=== PATIENT | male | born 1950 | race Hispanic/Latino ===

== ENCOUNTER → 2018-03-18 | Outpatient (CLI) | payer OTHER ==
[~2018-03-18] MED LIST: ATORVASTATIN CA80 MG PO; FISH OIL500 MG PO; FLOMAX0.4 MG PO; IRON325 M1 PO; ISOSORBIDE MONO30 MG PO; LOSARTAN POTASS25 MG PO; NIFEDIPINE ER30 M1 PO; NORCO 5-325 TA1 EACH PO; OMEPRAZOLE40 MG PO; PLAVIX75 MG PO; SERTRALINE HCL100 MG PO; ULTRAM50 MG PO; ZOFRAN ODT4 MG SL
--- NOTE | 2018-03-18 09:59 | Diagnostic Imaging Report ---
PROCEDURE:ABDOMINAL ULTRASOUND COMPARISON:None. INDICATIONS:EPIGASTRIC PAIN FINDINGS: Liver: Measures 16.0 cm in the mid clavicular line with normal hepatic parenchymal echogenicity. No focal mass. Main portal vein: Measures 0.89 cm with normal Hepatopetal flow. Gallbladder: Normal without evidence of stones. No gallbladder wall thickening measuring 0.2 cm. Common Bile Duct: Measures 4.7 mm with no echogenic filling defect. Sonographic Cole's sign: Negative Right kidney: Measures 13.9 x 7.0 x 5.5 cm. No solid or cystic mass, echogenic calculi or hydronephrosis. Normal parenchymal echogenicity. There is a midpole renal cyst measuring 1.3 cm. Left kidney: Small measuring 8.4 x 3.5 x 3.8 cm. Left kidney is more hypoechoic than the right. There is also cortical thinning. No solid or cystic mass, echogenic calculi, or hydronephrosis. Normal parenchymal echogenicity. Spleen: Measures 11.2 x 3.6 x 4.9 cm. Pancreas: Limited evaluation. Inferior vena cava: Limited evaluation Aorta: Normal with a maximal measurement of 1.9 cm. Ascites: None. CONCLUSION: 1. No acute sonographic abnormality. 2. Small atrophic left kidney. 3. Benign-appearing right renal cyst. Emmanuel Lopez D.O. Dictated by: mEmanuel Lopez D.O. on 03/18/2018 at 10:09 Electronically approved by: Emmanuel Lopez D.O. on 03/18/2018 at 10:09
== END ==
LOC: US 07:58
PROVIDERS: ATTEND Internal Medicine Gastroenterology
DX: R10.13 Epigastric pain (principal); R11.10 Vomiting, unspecified; E66.3 Overweight; I10 Essential (primary) hypertension; Z71.3 Dietary counseling and surveillance
CPT/HCPCS: 76700

== ENCOUNTER → 2018-12-18 | Outpatient (CLI) | payer MEDICARE ==
[~2018-12-18] MED LIST changes: +IOPAMIDOL 370 MG/ML 200 ML INFUS..BTL INJ ONE; +SODIUM CHLORIDE 0.9% 50ML 50 ML ONE
[2018-12-18 09:34] LABS: BLOOD UREA NITROGEN 12 mg/dL (7-26); BUN/CREATININE RATIO 14 (6-25); CREATININE, SERUM 0.86 mg/dL (0.72-1.25); EST GLOMERULAR FILTRATION RATE > 60 ML/MIN (60-)
--- NOTE | 2018-12-18 10:44 | Diagnostic Imaging Report ---
Exam: CT abdomen and pelvis Clinical history: Duodenal tumor Comparison: None available Technique: Helical images of the abdomen and pelvis were obtained after IV contrast administration DOSE REDUCTION: The exams was performed according to the departmental dose-optimization program which includes automated exposure control, adjustment of the mA and/or kV according to patient size and/or use of iterative reconstruction technique. Findings: The lung bases are clear. There is no evidence of pleural effusion. The cardiac size is within normal limits. The liver, spleen, pancreas, gallbladder, adrenal glands, and right kidney are unremarkable. The left kidney is diffusely atrophic likely chronic in nature. The patient is status post partial gastric and duodenal resection with postoperative changes. Focal mucosal prominence is noted at the anastomosis which may represent postoperative changes. However, due to the lack of comparison study, recurrence or residual tumor in this region cannot be excluded. The small and large bowels are normal in caliber. Appendix is visualized and unremarkable. The bladder, prostate, and seminal vesicles are unremarkable. There is no evidence of lymphadenopathy or free fluid. The aorta and IVC are normal in caliber. Degenerative changes are noted at the lower lumbar spine. No osteoblastic or lytic lesions are noted in the visualized osseous structures. Impression: 1. Status post distal gastric and duodenal resection with postoperative changes. Focal mucosal prominence is noted at the anastomosis. Comparison with prior study, if available, is recommended, otherwise, correlation with endoscopy is recommended. Signed by: Dr. Dickson Evans MD on 12/18/2018 10:41 AM
== END ==
LOC: CT 08:21
PROVIDERS: ATTEND Internal Medicine Gastroenterology
DX: C17.0 Malignant neoplasm of duodenum (principal); R11.10 Vomiting, unspecified
CPT/HCPCS: 36415; 74177; 82565; 84520; Q9967

== ENCOUNTER 2019-07-05 01:09 | Emergency (ER) | payer MEDICARE ==
[~2019-07-05] VITALS: Ht 177.8 cm; Wt 87.5 kg
[~2019-07-05 01:09] MED LIST changes: -IOPAMIDOL 370 MG/ML 200 ML INFUS..BTL INJ ONE; -SODIUM CHLORIDE 0.9% 50ML 50 ML ONE
--- OUTSIDE RECORDS SUMMARY | 2019-07-05 01:14 | XMS REPORT ---
Author Author [facility] Address Unknown Phone Unavailable Care Team Providers Care Jacker Feeder Name Role Phone Marcos BOSTON Unavailable Unavailable KARINE MCGOVERN Unavailable Unavailable Arielle HARRIS Unavailable Unavailable Problems This patient has no known problems. Allergies, Adverse Reactions, Alerts This patient has no known allergies or adverse reactions. Medications This patient has no known medications. Results Test Description Test Time Test Comments Text Results Atomic Results Result Comments CT ABDOMEN/PELVIS W 2018-12-18 10:34:00 [place] [address] Patient Name: FEROZ MENENDEZ MR #: [id number] : 1950 Age/Sex: 68/M Req #: [id number] Adm Physician: Ordered by: RENE BOSTON MD Report #: [id number] Location: CT Room/Bed: Procedure: [id number] CT/CT ABDOMEN/PELVIS W Exam Date: 12/18/18 Exam Time: 0940 REPORT STATUS: Signed Exam: CT abdomen and pelvis Clinical history: Duod enal tumor Comparison: None available Technique: Helical images of the abdomen and pelvis were obtained after IV contrast administration DOSE REDUCTION: The exams was performed according to the departmental dose- optimization program which includes automated exposure control, adjustment of the mA and/or kV according to patient size and/or use of iterative reconstruction technique. Findings: The lung bases are clear. There is no evidence of pleural effusion. The cardiac size is within normal limits. The liver, spleen, pancreas, gallbladder, adrenal glands, and right kidney are unremarkable. The left kidney is diffusely atrophic likely chronic in nature. The patient is status post partial gastric and duodenal resection with postoperative changes. Focal mucosal prominence is noted at the anastomosis which may represent postoperative changes. However, due to the lack of comparison study, recurrence or residual tumor in this region cannot be excluded. The small and large bowels are normal in caliber. Appendix is visualized and unremarkable. The bladder, prostate, and seminal vesicles are unremarkable. There is no evidence of lymphadenopathy or free fluid. The aorta and IVC are normal in caliber. Degenerative changes are noted at the lower lumbar spine. No osteoblastic or lytic lesions are noted in the visualized osseous structures. Impression: 1. Status post distal gastric and duodenal resection with postoperative changes. Focal mucosal prominence is noted at the anastomosis. Comparison with prior study, if available, is recommended, otherwise, correlation with endoscopy is recommended. Signed by: Dr. Dickson Evans MD on 12/18/2018 10:41 AM Dictated By: GABRIEL EVANS MD 1041 Transcribed By: KATRINA on 12/18/18 1041 COPY TO: RENE BOSTON MD ABDOMEN COMPLETE 2018-03-18 10:09:00 [place] [address] Patient Name: FEROZ MENENDEZ MR #: [id number] : 1950 Age/Sex: 67/M Req #: [id number] Adm Physician: Ordered by: RENE BOSTON MD Report #: [id number] Location: US Room/Bed: Procedure: [id number] US/US ABDOMEN COMPLETE Exam Date: 03/18/18 Exam Time: 0839 REPORT STATUS: Signed PROCEDURE: ABDOMINAL ULTRASOUND COMPARISON: None. INDICATIONS: EPIGASTRIC PAIN FINDINGS: Liver: Measures 16.0 cm in the mid clavicular line with normal hepatic parenchymal echogenicity. No focal mass. Main portal vein: Measures 0.89 cm with normal Hepatopetal flow. Gallbladder: Normal without evidence of stones. No gallbladder wall thickening measuring 0.2 cm. Common Bile Duct: Measures 4.7 mm with no echogenic filling defect. Sonographic Cole's sign: Negative Right kidney: Measures 13.9 x 7.0 x 5.5 cm. No solid or cystic mass, echogenic calculi or hydronephrosis. Normal parenchymal echogenicity. There is a midpole renal cyst measuring 1.3 cm. Left kidney: Small measuring 8.4 x 3.5 x 3.8 cm. Left kidney is more hypoechoic than the right. There is also cortical thinning. No solid or cystic mass, echogenic calculi, or hydronephrosis. Normal parenchymal echogenicity. Spleen: Measures 11.2 x 3.6 x 4.9 cm. Pancreas: Limited evaluation. Inferior vena cava: Limited evaluation Aorta: Normal with a maximal measurement of 1.9 cm. Ascites: None. CONCLUSION: 1. No acute sonographic abnormality. 2. Small atrophic left kidney. 3. Benign-appearing right renal cyst. Emmanuel Krueger D.O. Dictated by: Emmanuel Krueger D.O. on 03/18/2018 at 10:09 Electronically approved by: Emmanuel Krueger D.O. on 03/18/2018 at 10:09 Dictated By: EMMANUEL KRUEGER DO 1009 Transcribed By: CRISTY on 03/18/18 1009 COPY TO: RENE BOSTON MD CT BRAIN WO [place] [id number] Patient Name: FEROZ MENENDEZ MR #: [id number] : 1950 Age/Sex: 66/M Req #: [id number] Adm Physician: KARINE MCGOVERN MD Ordered by: SAGAR KRAMER MD Report #: [id number] Location: [facility] Room/Bed: [address] Procedure: [id number] CT/CT BRAIN WO Exam Date: 01/18/17 Exam Time: 1530 REPORT STATUS: Signed History: S SUDDEN ONSET DIZZY/VOMITING Comparison studies: January 16, 2017 Technique: Axial images were obtained from the skull base to the vertex. Coronal and sagittal reconstructions obtained from the axial data. Findings: Scalp/skull: No abnormalities. No fractures, blastic or lytic lesions. Extra-axial spaces: Mildly prominent bifrontal subarachnoid spaces. No masses. No fluid collections. Brain sulci: Mildly prominent bifrontal sulci. Ventricles: Normal in size and configuration. No hydrocephalus. Parenchyma: No abnormal densities. No masses, hemorrhage, acute or chronic cortical vascular insults. Sellar/suprasellar region: Partially empty sella. Craniocervical junction: Patent foramen magnum. No Chiari one malformation. IMPRESSION: No acute abnormalities. Moderate generalized age-related cerebral volume loss. Preliminary report was given by neuroradiology fellow Dr. Hopper at 5:19 PM on 01/18/2017. I have reviewed the study and agree with the findings in the report. Signed by: Dr. Tierra Mcdermott M.D. on 01/18/2017 8:08 PM Dictated By: TIERRA MCDERMOTT MD 07 COPY TO: SAGAR KRAMER MD [facility] (PORTABLE) [place] [address] Patient Name: FEROZ MENENDEZ MR #: [id number] : 1950 Age/Sex: 66/M Req #: [id number] Adm Physician: Ordered by: SAGAR KRAMER MD Report #: [id number] Location: ER Room/Bed: Procedure: [id number] DX/CHEST SINGLE (PORTABLE) Exam Date: 01/18/17 Exam Time: 1450 REPORT STATUS: Signed PROCEDURE: A single AP view of the chest. COMPARISON: [facility], CT, CT CHEST W, 01/16/2017, 22:35. INDICATIONS: WEAKNESS, DIZZY, VOMITTING FINDINGS: Lines/tubes: None. Lungs: The lungs are well inflated and clear. There is no evidence of pneumonia or pulmonary edema. Pleura: There is no pleural effusion or pneumothorax. Heart and mediastinum: Cardiac silhouette is unremarkable. Pulmonary vasculature is normal. Bones: No acute bony abnormality. IMPRESSION: 1. No acute cardiopulmonary abnormalities. Hiram Montalvo M.D. Dictated by: Hiram Montalvo M.D. on 01/18/2017 at 15:42 Electronically approved by: Hiram Montalvo M.D. on 01/18/2017 at 15:42 Dictated By: HIRAM MONTALVO MD 154 Transcribed By: CRISTY on 01/18/17 1542 COPY TO: SAGAR KRAMER MD CT CHEST W [place] [address] Patient Name: FEROZ MENENDEZ MR #: [id number] : 1950 Age/Sex: 66/M Req #: [id number] Adm Physician: Ordered by: MARGARET GUILLAUME Report #: [id number] Location: Room/Bed: Procedure: [id number] CT/CT CHEST W Exam Date: 01/16/17 Exam Time: 2240 REPORT STATUS: Signed EXAM: CT Chest, Abdomen and Pelvis WITH contrast INDICATION: Trauma COMPARISON: None. TECHNIQUE: Chest, abdomen and pelvis were scanned utilizing a multidetector helical scanner from the lung apex to the pubic symphysis before and after administration of IV contrast. Coronal and sagittal reformations were obtained. Trauma protocol was performed. Scan was performed during arterial phase through the chest and early portal venous phase through the abdomen and pelvis. No oral contrast was given. IV CONTRAST: 100 mL of Isovue-370 ORAL CONTRAST: Water RADIATION DOSE: Total DLP: 974.8 mGy*cm Estimated effective dose: (DLP x 0.015 x size factor) mSv COMPLICATIONS: None FINDINGS: LINES and TUBES: None. LUNGS AND AIRWAYS: The lungs are unremarkable. Airways are normal. PLEURA: The pleural spaces are clear. HEART AND MEDIASTINUM: The thyroid gland is normal. No mediastinal, hilar or axillary lymphadenopathy. The heart is normal in size.. There is no pericardial effusion. HEPATOBILIARY: No focal hepatic lesions. No biliary ductal dilation. GALLBLADDER: No radio-opaque stones or sludge. No wall thickening. SPLEEN: No splenomegaly. PANCREAS: No focal masses or ductal dilatation. ADRENALS: No adrenal nodules KIDNEYS/URETERS: The left kidney is severely atrophic/infarct involving the upper pole and interpolar region with minimal inferior pole normal parenchyma. No hydronephrosis. No cystic or solid mass lesions. No stones. GI TRACT: No abnormal distention, wall thickening, or evidence of bowel obstruction. Postsurgical changes related to prior gastrojejunostomy. Appendix is normal. PELVIC ORGANS/BLADDER: Incidentally noted 1.7 cm prostatic cyst. The prostate gland is within normal limits. The visualized rectum, bladder, seminal vesicles are unremarkable LYMPH NODES: No lymphadenopathy. VESSELS: There is moderate atherosclerotic disease in the aorta and major arterial branches. PERITONEUM / RETROPERITONEUM: No free air or fluid. BONES: There are degenerative changes in the lumbar spine mainly involving L4-5 and L5-S1 levels. Postsurgical changes in the chest consistent with prior CABG procedure SOFT TISSUES: Unremarkable. IMPRESSION: 1. No evidence of acute traumatic injury. 2. 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 3. 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 4. Postsurgical changes related to CABG procedure, and gastrojejunostomy Signed by: Dr. Tahir James M.D. on 01/16/2017 11:47 PM Dictated By: TAHIR GARCIA MD 46 Transcribed By: KATRINA on 01/16/172346 COPY TO: MARGARET GUILLAUME CT ABDOMEN/PELVIS W [place] [address] Patient Name: FEROZ MENENDEZ MR #: [id number] : 1950 Age/Sex: 66/M Req #: [id number] Adm Physician: Ordered by: MARGARET GUILLAUME Report #: [id number] Location: ER Room/Bed: Procedure: [id number] CT/CT ABDOMEN/PELVIS W Exam Date: 01/16/17 Exam Time: 0 REPORT STATUS: Signed EXAM: CT Chest, Abdomen and Pelvis WITH contrast INDICATION: Trauma COMPARISON: None. TECHNIQUE: Chest, abdomen and pelvis were scanned utilizing a multidetector helical scanner from the lung apex to the pubic symphysis before and after administration of IV contrast. Coronal and sagittal reformations were obtained. Trauma protocol was performed. Scan was performed during arterial phase through the chest and early portal venous phase through the abdomen and pelvis. No oral contrast was given. IV CONTRAST: 100 mL of Isovue-370 ORAL CONTRAST: Water RADIATION DOSE: Total DLP: 974.8 mGy*cm Estimated effective dose: (DLP x 0.015 x size factor) mSv COMPLICATIONS: None FINDINGS: LINES and TUBES: None. LUNGS AND AIRWAYS: The lungs are unremarkable. Airways are normal. PLEURA: The pleural spaces are clear. HEART AND MEDIASTINUM: The thyroid gland is normal. No mediastinal, hilar or axillary lymphadenopathy. The heart is normal in size.. There is no pericardial effusion. HEPATOBILIARY: No focal hepatic lesions. No biliary ductal dilation. GALLBLADDER: No radio-opaque stones or sludge. No wall thickening. SPLEEN: No splenomegaly. PANCREAS: No focal masses or ductal dilatation. ADRENALS: No adrenal nodules KIDNEYS/URETERS: The left kidney is severely atrophic/infarct involving the upper pole and interpolar region with minimal inferior pole normal parenchyma. No hydronephrosis. No cystic or solid mass lesions. No stones. GI TRACT: No abnormal distention, wall thickening, or evidence of bowel obstruction. Postsurgical changes related to prior gastrojejunostomy. Appendix is normal. PELVIC ORGANS/BLADDER: Incidentally noted 1.7 cm prostatic cyst. The prostate gland is within normal limits. The visualized rectum, bladder, seminal vesicles are unremarkable LYMPH NODES: No lymphadenopathy. VESSELS: There is moderate atherosclerotic disease in the aorta and major arterial branches. PERITONEUM / RETROPERITONEUM: No free air or fluid. BONES: There are degenerative changes in the lumbar spine mainly involving L4-5 and L5-S1 levels. Postsurgical changes in the chest consistent with prior CABG procedure SOFT TISSUES: Unremarkable. IMPRESSION: 1. No evidence of acute traumatic injury. 2. 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 3. 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 4. Postsurgical changes related to CABG procedure, and gastrojejunostomy Signed by: Dr. Tahir James M.D. on 01/16/2017 11:47 PM Dictated By: TAHIR GARCIA MD 46 Transcribed By: KATRINA on 01/16/172346 COPY TO: MARGARET GUILLAUME CT PELVIS WO [facility] [address] [place] [address] Patient Name: FEROZ MENENDEZ MR #: [id number] : 1950 Age/Sex: 66/M Req #: [id number] Adm Physician: Ordered by: MARGARET GUILLAUME Report #: [id number] Location: ER Room/Bed: Procedure: [id number] CT/CT PELVIS WO Exam Date: 01/16/17 Exam Time: 1830 REPORT STATUS: Signed PROCEDURE: CT PELVIS WITHOUT CONTRAST COMPARISON: [facility], DX, HIP LEFT 2-3 VW (+/- PELVIS), 01/16/2017, 18:12. INDICATIONS: FALL, LEFT HIP PAIN TECHNIQUE: CT images were created without intravenous contrast. FINDINGS: PELVIC ORGANS: Bladder is decompressed, but grossly unremarkable. Dystrophic calcifications in the prostate. Seminal vesicles are unremarkable. PELVIC NODES: No distal retroperitoneal pelvic or inguinal adenopathy. GI TRACT: Visualized bowel shows no dilation or obstruction. The appendix is well identified and normal in caliber. BONES: Acute, nondisplaced fracture of the anterior column of the left acetabulum (series 4, image 61 and sagittal image 42), which extends into the joint space. Minimally displaced oblique fracture of the left infe rior pubic ramus (series 4, images 79-81 and sagittal bone images 77 and 78.) OTHER: Soft tissues are grossly unremarkable.. CONCLUSION: 1. Acute, nondisplaced fracture of the anterior column of the left acetabulum, which extends into the joint space. 2. Minimally displaced oblique fracture of the left inferior pubic ramus. These fractures correspond to the abnormalities noted on prior plain film. Hiram Montalvo M.D. Dictated by: Hiram Montalvo M.D. on 01/16/2017 at 19:30 Electronically approved by: Hiram Montalvo M.D. on 01/16/2017 at 19:30 Dictated By: HIRAM MONTALVO MD 29 Transcribed By: CRISTY on 01/16/171929 COPY TO: MARGARET GUILLAUME CT CERVICAL SPINE WO [place] [address] Patient Name: FEROZ MENENDEZ MR #: [id number] : 1950 Age/Sex: 66/M Req #: [id number] Adm Physician: Ordered by: BRE GUSTAFSON MD Report #: [id number] Location: ER Room/Bed: Procedure: [id number] CT/CT CERVICAL SPINE WO Exam Date: 01/16/17 Exam Time: 1830 REPORT STATUS: Signed Exams: Head and cervical spine CTs without IV contrast History: Trauma, fall Comparison studies: None Technique: Axial images were obtained from the brain and cervical spine. Coronal and sagittal images reconstructed from the axial data. Intravenous contrast: None Findings: Head CT: Scalp: No abnormalities. Bones: No fractures, blastic or lytic lesions. Extra-axial spaces: No masses. No fluid collections. Brain sulci: Appropriate for age. Ventricles: Normal in size and configuration. No hydrocephalus. Parenchyma: No abnormal densities. No masses, acute hemorrhage, acute or chronic vascular insults. Sellar/suprasellar region: No abnormalities. Craniocervical junction: The foramen magnum is patent. No Chiari one malformation. Cervical spine CT: Fractures: None. Soft tissues: No gross abnormalities. Atlantoaxial articulation: Intact. Alignment: Straightened cervical curvature may be positional. No acute subluxations. Cervicomedullary junction: No abnormalities. The foramen magnum is patent. Vertebrae: No infection or neoplasm. Degenerative changes: Moderately degenerated C5-C6 and C6-C7 discs with loss of disc height. Disc osteophyte complexes at C5-C6 and C6-C7 indent the thecal sac without significant canal stenosis moderate right and mild left foraminal stenosis at C5-C6 and mild bilateral foraminal stenosis at C6-C7 due to uncovertebral and facet arthrosis. Incidental findings: Hypodense 1.0 cm nodule in the right superior thyroid lobe. Minimal calcified atherosclerosis at the left cervical carotid bulb. IMPRESSION: Head CT: No abnormalities. Cervical spine CT: 1. No cervical spine fracture or subluxation. 2. Degenerative changes at C5-C6 and C6-C7. 3. Cannot adequately evaluate ligament, spinal cord and or vascular abnormalities on the basis of this examination. Signed by: Dr. Faustina Low M.D. on 01/16/2017 7:22 PM Dictated By: FAUSTINA LOW MD 21 Transcribed By: KATRINA on 01/16/171921 COPY TO: BRE GUSTAFSON MD CT BRAIN WO [place] [address] Patient Name: FEROZ MENENDEZ MR #: [id number] : 1950 Age/Sex: 66/M Req #: [id number] Adm Physician: Ordered by: BRE GUSTAFSON MD Report #: [id number] Location: ER Room/Bed: Procedure: [id number] CT/CT BRAIN WO Exam Date: 01/16/17 Exam Time: 1830 REPORT STATUS: Signed Exams: Head and cervical spine CTs without IV contrast History: Trauma, fall Comparison studies: None Technique: Axial images were obtained from the brain and cervical spine. Coronal and sagittal images reconstructed from the axial data. Intravenous contrast: None Findings: Head CT: Scalp: No abnormalities. Bones: No fractures, blastic or lytic lesions. Extra-axial spaces: No masses. No fluid collections. Brain sulci: Appropriate for age. Ventricles: Normal in size and configuration. No hydrocephalus. Parenchyma: No abnormal densities. No masses, acute hemorrhage, acute or chronic vascular insults. Sellar/suprasellar region: No abnormalities. Craniocervical junction: The foramen magnum is patent. No Chiari one malformation. Cervical spine CT: Fractures: None. Soft tissues: No gross abnormalities. Atlantoaxial articulation: Intact. Alignment: Straightened cervical curvature may be positional. No acute subluxations. Cervicomedullary junction: No abnormalities. The foramen magnum is patent. Vertebrae: No infection or neoplasm. Degenerative changes: Moderately degenerated C5-C6 and C6-C7 discs with loss of disc height. Disc osteophyte complexes at C5-C6 and C6-C7 indent the thecal sac without significant canal stenosis moderate right and mild left foraminal stenosis at C5-C6 and mild bilateral foraminal stenosis at C6-C7 due to uncovertebral and facet arthrosis. Incidental findings: Hypodense 1.0 cm nodule in the right superior thyroid lobe. Minimal calcified atherosclerosis at the left cervical carotid bulb. IMPRESSION: Head CT: No abnormalities. Cervical spine CT: 1. No cervical spine fracture or subluxation. 2. Degenerative changes at C5-C6 and C6-C7. 3. Cannot adequately evaluate ligament, spinal cord and or vascular abnormalities on the basis of this examination. Signed by: Dr. Faustina Low M.D. on 01/16/2017 7:22 PM Dictated By: FAUSTINA LOW MD 21 Transcribed By: KATRINA on 01/16/171921 COPY TO: BRE GUSTAFSON MD [facility] LEFT [place] [address] Patient Name: FEROZ MENENDEZ MR #: [id number] : 1950 Age/Sex: 66/M Req #: [id number] [facility] Physician: Ordered by: BRE GUSTAFSON MD Report #: [id number] Location: ER Room/Bed: Procedure: [id number] DX/SHOULDER LEFT COMPLETE Exam Date: 01/16/17 Exam Time: 1819 REPORT STATUS: Signed PROCEDURE: X-RAY LEFT SHOULDER, COMPLETE COMPARISON: [facility], DX, CHEST SINGLE (PORTABLE), 10/21/2013, 11:12. [facility], DX, CHEST 2 VIEWS, 07/28/2014, 0:48. INDICATIONS: POST FALL, LEFT SHOULDER AND HIP PAIN FINDINGS: Normal mineralization. There are no acute, displaced fractures, dislocations, lytic or blastic lesions. Glenohumeral joint is grossly unremarkable. No evidence of a.c. separation. Visualized portions of left lung are clear.. The soft-tissues are unremarkable. CONCLUSION: No acute abnormalities. Hiram Montalvo M.D. Dictated by: Hiram Montalvo M.D. on 01/16/2017 at 18:52 Electronically approved by: Hiram Montalvo M.D. on 01/16/2017 at 18:52 Dictated By: HIRAM MONTALVO MD 51 Transcribed By: CRISTY on 01/16/171851 COPY TO: BRE GUSTAFSON MD HIP LEFT 2-3 VW (+/- PELVIS) [address] [address] Patient Name: FEROZ MENENDEZ MR #: [id number] : 1950 Age/Sex: 66/M Req #: [id number] Adm Physician: Ordered by: BRE GUSTAFSON MD Report #: [id number] Location: ER Room/Bed: Procedure: [id number] DX/HIP LEFT 2-3 VW (+/- PELVIS) Exam Date: Exam Time: REPORT STATUS: Signed PROCEDURE: HIP LEFT 2-3 VW (+/- PELVIS) COMPARISON: None. INDICATIONS: POST FALL, LEFT HIP AND SHOULDER PAIN FINDINGS: BONES: Mild osteopenia, which limits evaluation of bony structures. Linear lucency in the left acetabulum, which may represent an acute, nondisplaced fracture. Questionable linear lucency in the left inferior pubic ramus Rest of the bony structures is intact. Sacral arches are preserved. SOFT TISSUES: Negative. OTHER: mild degenerative changes in bilateral hip joints. CONCLUSION: 1. Mild osteopenia, which limits evaluation of the bony structures. 2. Linear lucency in the left acetabulum may represent an acute, nondisplaced fracture. Recommend CT pelvis trauma protocol. 3. Questionable linear lucency in the left inferior pubic ramus, which may also represent a nondisplaced fracture. Hiram Montalvo M.D. Dictated by: Hiram Montalvo M.D. on 01/16/2017 at 18:57 Electronically approved by: Hiram Montalvo M.D. on 01/16/2017 at 18:57 Dictated By: HIRAM MONTALVO MD 56 Transcribed By: CRISTY on 01/16/171856 COPY TO: Trung GUSTAFSON MD
[2019-07-05] MEDS: HYDRALAZINE HCL 25 MG TAB PO ONE (01:20)
[2019-07-05] MEDS ORDERED: MECLIZINE HCL 12.5 MG TAB ONE (01:20)
[2019-07-05] MEDS: MECLIZINE HCL 12.5 MG TAB PO ONE (01:20)
--- NOTE | 2019-07-05 02:30 | Diagnostic Imaging Report ---
EXAMINATION: Head CT without contrast. HISTORY:Dizziness, nausea, elevated blood pressure. COMPARISON:Report of CT head from 01/18/2017. TECHNIQUE: Multidetector axial images were obtained from the foramen magnum to the vertex without contrast. The images were reconstructed using brain and bone algorithms. Thin section brain images were reformatted into coronal and sagittal planes. Dose modulation, iterative reconstruction, and/or weight based adjustment of the mA/kV was utilized to reduce the radiation dose to as low as reasonably achievable. Intravenous contrast: None IMAGE QUALITY: Acceptable. FINDINGS: Skull/scalp: No lytic or blastic. lesions. No surgical changes. Parenchyma: Subtle focal hypodensity in left paramedian aspect of the aaron represents age indeterminate lacunar infarct. No acute hemorrhage, mass or acute major vascular territorial infarct. Arteries: No density suggestive of thrombosis. Dural sinuses: No abnormal density suggestive of thrombosis. Ventricles: No hydrocephalus or displacement. Extra-axial spaces: Unchanged prominent bilateral frontal extra-axial space due to volume loss. Brain volume: Mild generalized, predominantly bilateral frontal cerebral volume loss. Craniocervical junction: No mass, Chiari malformation, or basilar invagination. Sella: No mass. Paranasal/mastoid sinuses: Mild mucosal thickening without fluid level in right sphenoid sinus. IMPRESSION: 1. Age indeterminate lacunar infarct in the aaron. 2. Mild generalized, predominantly bilateral frontal cerebral volume loss. Signed by: Dr. Tierra Mcdermott M.D. on 07/05/2019 2:27 AM
[2019-07-05 03:06] VITALS: BP 174/96
== END 2019-07-05 03:00 | disposition home or self-care (01) ==
LOC: ER 01:09
DX: R42 Dizziness and giddiness (principal); R11.0 Nausea; I10 Essential (primary) hypertension; I25.10 Atherosclerotic heart disease of native coronary artery without angina pectoris; E78.5 Hyperlipidemia, unspecified; F41.9 Anxiety disorder, unspecified; K21.9 Gastro-esophageal reflux disease without esophagitis; Z95.1 Presence of aortocoronary bypass graft
CPT/HCPCS: 70450; 93005; 99283; J8597